=== PATIENT | female | born 2000 | race Caucasian/White ===

== ENCOUNTER 2024-11-13 02:16 | Emergency (ER) | payer BC ==
[~2024-11-13] VITALS: Ht 165.1 cm; Wt 60.7 kg
[2024-11-13 03:48] LABS: KETONE, URINE AUTO RFX 1+ mg/dL (NEGATIVE); LEUKOCYTE ESTERASE UR AUTO RFX NEGATIVE (NEGATIVE); MUCUS, URINE RFX SMALL (NEGATIVE); NITRITE, URINE AUTO RFX NEGATIVE (NEGATIVE); RBC, URINE AUTO RFX TNTC /HPF (0-3); SQUAM EPITHELIAL CELL UR AURFX 1 /HPF (0-6); WBC, URINE AUTO RFX 1 /HPF (0-3)
[2024-11-13] MEDS: MORPHINE 2 MG/ML 1ML VIAL IV ONE (04:05)
[2024-11-13] MEDS: ONDANSETRON 4MG 2ML VIAL IV ONE (04:05)
[2024-11-13 04:24] LABS: BASO # 0.1 10^3/uL (0.0-0.2); BASO % 0.6 % (0.0-1.0); EOS # 0.1 10^3/uL (0.0-0.5); EOS % 0.7 % (0.0-3.0); HEMATOCRIT 38.6 % (36.0-47.0); HEMOGLOBIN 13.2 g/dl (12.0-15.5); LYMPH # 1.8 10^3/uL (1.5-5.0); LYMPH % 14.2 % (24.0-44.0); MEAN CORPUSCULAR HEMOGLOBIN 28.8 pg (27.0-33.0); MEAN CORPUSCULAR HGB CONC 34.2 g/dl (32.0-36.5); MEAN CORPUSCULAR VOLUME 84.1 fl (80.0-96.0); MONO # 0.5 10^3/uL (0.0-0.8); MONO % 4.2 % (2.0-8.0); NEUTROPHILS # 10.1 10^3/uL (1.5-8.5); PLATELET COUNT, AUTOMATED 252 10^3/uL (150-450); RED BLOOD COUNT 4.59 10^6/uL (4.00-5.40); WHITE BLOOD COUNT 12.6 10^3/uL (4.0-10.0)
[2024-11-13 05:03] LABS: HCG, SERUM QUALITATIVE NEGATIVE (NEGATIVE)
[2024-11-13] MEDS: KETOROLAC 30 MG/ML 1ML VIAL IV ONE (05:48)
[2024-11-13 05:56] VITALS: BP 165/87; TEMP 97.8; O2SAT 98
[2024-11-13] MEDS: NS (Normal Saline) 0.9% 1,000 ML IV ONE (06:22)
[2024-11-13] MEDS: TAMSULOSIN 0.4 MG CAP PO ONE (06:22)
[2024-11-13] MEDS ORDERED: ONDA-282 PO (06:35)
[2024-11-13] MEDS ORDERED: KETO10TAB PO (06:35)
[2024-11-13] MEDS ORDERED: FLOM0.4C39 PO (06:35)
[2024-11-14] MEDS ORDERED: VIEN1TAB (13:12)
[2024-11-14] MEDS ORDERED: DULO1CAP6 (13:12)
[2024-11-14] MEDS ORDERED: PERC5TAB12 PO (17:14)
== END 2024-11-13 08:00 | disposition home or self-care (01) ==
LOC: M ED 02:16
DX: N20.1 Calculus of ureter (principal); F12.10 Cannabis abuse, uncomplicated; F10.10 Alcohol abuse, uncomplicated; Z88.0 Allergy status to penicillin; Z79.83 Long term (current) use of bisphosphonates; Z79.899 Other long term (current) drug therapy
CPT/HCPCS: 74176; 80047; 81001; 84703; 85025; 96361; 96374; 96375; 99284; J1885; J2405

== ENCOUNTER 2024-11-14 13:03 | Emergency (ER) | payer BC ==
[~2024-11-14] VITALS: Ht 165.1 cm; Wt 81.1 kg
[~2024-11-14 13:03] MED LIST: FLOM0.4C39 PO; KETO10TAB PO; ONDA-282 PO
[2024-11-14] MEDS ORDERED: VIEN1TAB (13:12)
[2024-11-14] MEDS ORDERED: DULO1CAP6 (13:12)
[2024-11-14] MEDS: ONDANSETRON 4MG 2ML VIAL IV ONE (13:54)
[2024-11-14 13:59] LABS: BASO # 0.1 10^3/uL (0.0-0.2); BASO % 0.4 % (0.0-1.0); EOS # 0.1 10^3/uL (0.0-0.5); EOS % 0.7 % (0.0-3.0); HEMATOCRIT 38.6 % (36.0-47.0); HEMOGLOBIN 13.7 g/dl (12.0-15.5); LYMPH # 1.7 10^3/uL (1.5-5.0); MEAN CORPUSCULAR HGB CONC 35.5 g/dl (32.0-36.5); MEAN CORPUSCULAR VOLUME 84.5 fl (80.0-96.0); MONO # 0.9 10^3/uL (0.0-0.8); MONO % 5.2 % (2.0-8.0); NEUTROPHILS % 83.3 % (36.0-66.0); PLATELET COUNT, AUTOMATED 253 10^3/uL (150-450); RED BLOOD COUNT 4.57 10^6/uL (4.00-5.40); WHITE BLOOD COUNT 16.7 10^3/uL (4.0-10.0)
[2024-11-14 14:00] LABS: KETONE, URINE AUTO RFX 1+ mg/dL (NEGATIVE); LEUKOCYTE ESTERASE UR AUTO RFX NEGATIVE (NEGATIVE); MUCUS, URINE RFX SMALL (NEGATIVE); NITRITE, URINE AUTO RFX NEGATIVE (NEGATIVE); RBC, URINE AUTO RFX 14 /HPF (0-3); SQUAM EPITHELIAL CELL UR AURFX 1 /HPF (0-6); WBC, URINE AUTO RFX 2 /HPF (0-3)
[2024-11-14 14:34] LABS: ALBUMIN 4.2 G/DL (3.2-5.2); BILIRUBIN,DIRECT 0.1 MG/DL (<0.4); BILIRUBIN,TOTAL 0.4 MG/DL (0.3-1.2); TOTAL PROTEIN 7.5 G/DL (5.7-8.2)
[2024-11-14] MEDS: MORPHINE 4 MG/ML 1ML VIAL IV PRN (14:44)
[2024-11-14] MEDS: NS (Normal Saline) 0.9% 1,000 ML IV ONE (14:44)
[2024-11-14] MEDS: KETOROLAC 30 MG/ML 1ML VIAL IV ONE (16:04)
[2024-11-14] MEDS ORDERED: PERC5TAB12 PO (17:14)
[2024-11-14] MEDS: OXYCODONE/APAP 5MG/325MG(HOME DOSE PACK) PO ONE (17:18)
[2024-11-14 17:28] VITALS: BP 142/91; TEMP 97.8; O2SAT 99
== END 2024-11-14 17:31 | disposition home or self-care (01) ==
LOC: M ED 13:03
DX: N20.1 Calculus of ureter (principal); F41.9 Anxiety disorder, unspecified; F32.9 Major depressive disorder, single episode, unspecified; Z87.442 Personal history of urinary calculi; Z88.0 Allergy status to penicillin; Z79.899 Other long term (current) drug therapy; Z79.83 Long term (current) use of bisphosphonates
CPT/HCPCS: 76775; 80047; 80076; 81001; 83690; 85025; 96361; 96374; 96375; 99284; J1885; J2405

== ENCOUNTER → 2024-12-17 | Outpatient (REF) | payer BC ==
[~2024-12-17] MED LIST changes: +DULO1CAP6; -FLOM0.4C39 PO; +PERC5TAB12 PO; +TAMS-18 PO; +VIEN1TAB
== END ==
LOC: M SMT 13:09
PROVIDERS: ATTEND Urology
DX: N20.1 Calculus of ureter (principal)

== ENCOUNTER → 2025-03-02 | Outpatient (CLI) | payer BC, MEDICAID | LOC: M LAB 10:30 | PROVIDERS: ATTEND Nurse Practitioner Family | DX: Z11.1 Encounter for screening for respiratory tuberculosis (principal) ==